=== PATIENT | female | born 1945 | race Caucasian/White ===

== ENCOUNTER 2023-04-30 09:35 | Day surgery (SDC) | payer OTHER, SELFPAY ==
[2023-04-30] VITALS (11 sets, daily range): BP systolic 97–131; BP diastolic 45–77; BMI 29.9
[2023-04-30] MEDS: NSS 222 ML IV (10:27)
[2023-04-30 12:07] LABS: ACT-LR - POC 282 Seconds (116-155)
--- NOTE | 2023-04-30 12:52 | ITS.CL.CATH ---
Reverser - Catheterization
Cardiac Catheterization
Procedure Report:
CARDIAC CATHETERIZATION REPORT
Date of Procedure: 04/30/2023
Referring: Kanu Barnett MD
Indication: Recent onset class III angina
HEMODYNAMIC DATA
AO: 144/84
LV: 144/20
LEFT VENTRICULOGRAPHY: Hyperdynamic ventricular wall motion with EF greater than 70%
CORONARY ANGIOGRAPHY
Dominance: Right
Left Main: Normal
LAD: Tandem 30% and 40-50% mid LAD stenoses with otherwise mild luminal irregularities in the LAD proper. The large bifurcating first diagonal branch has 95% stenosis in an equal sized daughter branch. The moderate to large second diagonal branch
has 80% proximal to mid stenosis.
Circumflex: 30-40% mid stenosis with otherwise trivial luminal disease
RCA: Dominant vessel with multiple luminal irregularities to 20% severity
Angioplasty: At the conclusion the diagnostic study, we proceeded with stenting of the 95% D1 and 80% D2 lesions. Heparin was used for anticoagulation. Plavix 60 mg was administered at the procedure conclusion. A 6 Togolese EBU 3.5 guide catheter
was used. A BMW wire was advanced into the D2. The 80% stenosis was directly stented with a 2.25 x 12 Xience PHANI deployed at 14 gary then postdilated with a 2.25 NC trek to 17 gary. The angiographic result was outstanding. We then turned our
attention to the D1 lesion. The same BMW wire was advanced across the lesion. Angioplasty with a 2.25 x 8 NC trek to 4 gary did not allow us to advance a 2.25 x 12 Xience PHANI to the target location. We then dilated to 6 gary. We still could not
advance the stent across the lesion. The undeployed stent was removed. We then placed a 2.25 x 18 Renzo PHANI which had a far superior crossing profile and pose no difficulty in getting the stent to the target location where was deployed at 14 gary
then postdilated with a 2.25 NC Euphora to 17 gary along its entire length. The final angiographic result was outstanding. There were no procedural complications.
Closure Device: 6 Togolese Angio-Seal RFA
Radiation (mGy): 382
DAP (cm2.Gy): 29.6
Fluoroscopy time: 9.8 minutes
CONCLUSIONS
1: Hyperdynamic left ventricular wall motion with EF greater than 70%
2: Systemic hypertension
3. Severe branch disease of the LAD as described with otherwise mild CAD
4. Successful stenting of 80% D2 lesion using 2.25 x 12 Xience PHANI
5. Successful stenting of 95% D1 lesion using 2.25 x 18 Renzo PHANI
6. Recommend dual antiplatelet therapy for 12 months
7. Continue risk factor modification efforts
Copy to: Kanu Barnett MD, Danielle Montemayor,
Luis A Arita MD, [facility], [facility]
[2023-04-30 12:54] LABS: ACT-LR - POC > 397 Seconds (116-155)
[2023-04-30] MEDS: NSS 1000 IV (13:00)
--- NOTE | 2023-04-30 16:41 | W.PN.UPDATE ---
Update Note
Progress Note Update
Pt seen post first and second diagonal PCI w/2 PHANI. Right radial cath site without ht/bleeding, non tender. Post EKG NSR, anterolateral TWI as before, no acute changes. Pt understands importance of uninterrupted DAPT w/asa, plavix. Originally had
been ordered atorvastatin 40mg and had not started yet- will sent rx to pharmacy today. Cardiac rehab consulted. Followup at [facility] arranged. Home today if cath site/tele remain stable.
== END 2023-04-30 17:30 | disposition home or self-care (01) ==
LOC: CATH 09:35
PROVIDERS: ATTENDING PHYSICIAN Internal Medicine Cardiovascular Disease; FAMILY PHYSICIAN Family Medicine
DX: I25.118 Atherosclerotic heart disease of native coronary artery with other forms of angina pectoris (principal); I10 Essential (primary) hypertension; Z79.82 Long term (current) use of aspirin; Z79.02 Long term (current) use of antithrombotics/antiplatelets
CPT/HCPCS: 85347; 93005; 93458; C1725; C1769; C1874; C1894; C9600; C9601; Q9967

== ENCOUNTER → 2023-06-22 08:51 | Outpatient (REF) | payer OTHER, SELFPAY | LOC: RCS 08:51 | PROVIDERS: ATTENDING PHYSICIAN Nurse Practitioner; FAMILY PHYSICIAN Family Medicine | DX: I25.10 Atherosclerotic heart disease of native coronary artery without angina pectoris (principal); R06.02 Shortness of breath; E78.00 Pure hypercholesterolemia, unspecified | CPT/HCPCS: 93306 ==

== ENCOUNTER 2024-04-25 14:11 | Emergency (ER) | payer OTHER, SELFPAY ==
[2024-04-25 14:19] VITALS: BP 133/86
--- NOTE | 2024-04-25 15:08 | ED.GENMED ---
History of Present Illness
General
Chief Complaint: Chest Pain
Source: patient
Exam Limitations: none
Time Seen by Provider: 04/25/24 14:45
Nursing documentation reviewed up to this point in time: agreed with
History of Present Illness
History of Present Illness:
78 yr old [id number] with past medical history of CAD, stents x 2(April 2023) female presents to the ER complaining of intermittent left-sided dull chest and arm pain for the past 2 days. Symptoms she reports are not necessarily with exertion
they simply 'come and go.' She did feel some pain in back with symptoms as well. She reports pain is intermittent and resolves on its own. She denies any diaphoresis nausea vomiting.
She complains of mild soreness in her chest presently. She denies any associated shortness of breath.
She denies any recent illness.
Patient continues on ASA.
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
Review of Systems
Review of Systems
Allergies reviewed?: Yes
All Other Systems: ROS reviewed and negative except as documented in HPI and ROS
Constitutional: Reports no symptoms
EENT: Reports no symptoms
Respiratory: Reports no symptoms; Denies trouble breathing
Cardiac: Reports chest pain; Denies diaphoresis, palpitations or syncope
ABD/GI: Reports no symptoms
: Reports no symptoms
Musculoskeletal: Reports no symptoms
Skin: Reports no symptoms
Neurological: Reports no symptoms
Psychiatric: Reports no symptoms
Phy Exam
General Physical Exam
General Presentation: no apparent distress
General age: appears stated age
General Skin: warm and dry
General Habitus: normal
General Mental: alert
General Hydration: appears well hydrated
Cardiovascular Exam
Cardiovascular Exam: regular rate/rhythm, no murmur and normal peripheral pulses
Pulmonary Exam
Pulmonary Exam: lungs clear and no respiratory distress
Scores
Heart Score for Chest Pain Patients
STEMI patient?: Not applicable
Course
Orders/Labs/Results
Orders:
Orders
04/25/24 14:12
EKG [Electrocardiogram (*1)] Urgent
Reason for Study: Chest Pain
EKG- Treatment ONCE
04/25/24 15:00
Complete Blood Count/With Diff Urgent
Comprehensive Metabolic Panel Urgent
Troponin I Urgent
04/25/24 17:39
Chest [CR Chest - 2 Views ] Urgent
Comment:
Reason For Exam: cp
04/25/24 17:40
Electrocardiogram (*1) Stat
Reason for Study: Other
Other Reason for Exam: chest pain
EKG- Treatment ONCE
04/25/24 18:00
Troponin I Urgent
Abnormal Lab Results
04/25/24
15:00
Absolute Monos (auto) 0.7 H 10^3/uL
(0.1-0.6)
Lymphocytes % 19.7 L %
(20.5-51.1)
Glucose 146 H mg/dl
(70-99)
04/25/24 15:00
04/25/24 15:00
Vital Signs
Initial and Last Documented VS:
Initial Vital Signs
Temp Pulse Resp BP Pulse Ox
98.4 F 81 16 133/86 98
04/25/24 14:19 04/25/24 14:19 04/25/24 14:19 04/25/24 14:19 04/25/24 14:19
Last Documented Vital Signs
Temp Pulse Resp BP Pulse Ox
98.4 F 78 20 133/86 98
04/25/24 14:19 04/25/24 16:15 04/25/24 15:45 04/25/24 14:19 04/25/24 14:19
Financial Administration Officer consulted with Physician
Financial Administration Officer consulted with physician?: Yes
Name of Physician Consulted: Jean
MDM/Problems Addressed
MDM/Problems Addressed:
Patient is a 78-year-old female who presented with intermittent left-sided chest pain jaw pain back pain that resolves on its own.
She is asymptomatic here in the ER first troponin negative no acute findings and EKG.
Pt is well appearing, will plan for repeat troponin and if negative will d/c home w/ fu by [facility] cardiology. will place on hotline
*Radiology
Radiology exam reviewed: radiology read reviewed
*Pulse Oximetry
Patient hypoxic: no
*EKG
Interpreted by ED Provider?: Yes
Heart Rate: 85
Rate: normal
Rhythm: sinus
Ischemia: non-specific ST changes
*Critical Care Note
Total Time (30-74mins, 75-104mins- exclusive of procedures): Not Applicable
Data Reviewed
Review of Other/Old Records Reveals: Other (Cardiac cath with stent report from April,(patient had stenting of D2 lesion and D1 lesion))
ED Attending Note
-
Portions of this chart may have been created with voice recognition software.� Occasional wrong word or��sound alike� substitutions may have occurred due to the inherent limitations of voice recognition software.
Discharge Plan
Departure
Patient Disposition: Home (Routine Discharge)
Date of Disposition: 04/25/24
Time of Disposition: 18:34
Patient with high blood pressure during this ER visit?: Yes
Condition: Fair
Covid-19: Not Applicable
Discharge Problem:
Chest pain
Instructions: Chest Pain CBC Follow Up
Prescriptions:
No Action
multivitamin Tablet
1 tab PO DAILY
diltiazem HCl 240 mg Capsule,Ext.Rel 24h Degradable
240 mg PO DAILY
aspirin 81 mg Tablet,Delayed Release (Dr/Ec)
81 mg PO DAILY
atorvastatin [atorvastatin] 40 mg tablet
40 mg PO DAILY Qty: 90 3RF
clopidogrel [clopidogrel] 75 mg tablet
75 mg PO DAILY Qty: 90 3RF
nitroglycerin [nitroglycerin] 0.4 mg tablet, sublingual
0.4 mg sublingual [id number] PRN (Reason: chest pain) Qty: 25 2RF
Referrals:
Cyrus Paez MD [Active] -
Danielle Montemayor, DO [Family Provider] -
Activity Restrictions/Additional Instructions:
As discussed you are placed on the chest pain hotline which means you should receive a phone call from the office in the next 2 days if you do not please call the office to make an appointment soon as possible for reevaluation of symptoms. Return
if any worsening of symptoms .
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
Interventions
Interventions:
*Risk Screen - Suicide Last Done: 04/25/24 14:19
*Neglect/Abuse Screening Last Done: 04/25/24 14:19
*ED COVID-19 Vaccine History Last Done: 04/25/24 14:58
ED- Cardiac Assessment Last Done: 04/25/24 14:58
Discharge Date and Time
Print Language: COLOMBIAN
[2024-04-25 15:09] LABS: % Basophils 0.8 % (0-2); % Eosinophils 2.3 % (0-6); % Immature Granulocytes 0.3 % (0-0.5); % Lymphocytes 19.7 % (20.5-51.1); % Monocytes 8.8 % (1.7-9.3); % Neutrophils 68.1 % (42.2-75.2); Absolute Basophils 0.1 10^3/uL (0-0.2); Absolute Eosinophils 0.2 10^3/uL (0-0.7); Absolute Lymphocytes 1.6 10^3/uL (1.2-3.4); Absolute Monocytes 0.7 10^3/uL (0.1-0.6); Absolute Neutrophils 5.4 10^3/uL (1.4-6.5); Hematocrit 40.5 % (37.0-47.0); Hemoglobin 13.8 g/dL (12.0-16.0); Mean Corp Hgb Conc. 34.1 g/dL (33.0-37.0); Mean Corpuscular Hgb 28.3 pg (27.0-31.0); Mean Platelet Volume 9.2 fL (7.4-10.4); Nucleated Red Blood Cells % 0 %; Platelet Count 278 10^3/uL (130-400); Red Blood Cell Count 4.88 10^6/uL (4.20-5.40); Red Cell Dist. Width 13.6 % (11.5-14.5); White Blood Cell Count 7.9 10^3/uL (4.8-10.8)
[2024-04-25 15:26] LABS: ALT (SGPT) 16 U/L (0-35); AST (SGOT) 17 U/L (14-36); Albumin 4.2 g/dl (3.5-5.0); Alkaline Phosphatase 97 U/L (38-126); Blood Urea Nitrogen 16 mg/dl (7-17); Calcium 9.5 mg/dl (8.4-10.2); Carbon Dioxide 27 mmol/L (22-30); Chloride 103 mmol/L (98-107); Glucose 146 mg/dl (70-99); Potassium 3.7 mmol/L (3.5-5.1); Sodium 139 mmol/L (135-145); Total Bilirubin 0.8 mg/dl (0.2-1.3); Total Protein 6.6 g/dl (6.3-8.2); eGFR > 60.00
[2024-04-25 15:35] LABS: Troponin I < 0.012 ng/ml
[2024-04-25 18:30] LABS: Troponin I < 0.012 ng/ml
== END 2024-04-25 18:44 | disposition home or self-care (01) ==
LOC: EMR 14:11
PROVIDERS: Nurse Practitioner; EMERGENCY PHYSICIAN Student in an Organized Health Care Education/Training Program; FAMILY PHYSICIAN Family Medicine
DX: R07.89 Other chest pain (principal); I25.10 Atherosclerotic heart disease of native coronary artery without angina pectoris
CPT/HCPCS: 99283; 71046; 80053; 84484; 85025; 93005

== ENCOUNTER 2024-05-23 06:07 | Day surgery (SDC) | payer OTHER, SELFPAY ==
[2024-05-23] VITALS (12 sets, daily range): BP systolic 112–144; BP diastolic 62–106; BMI 29.9
[2024-05-23] MEDS: NSS 223 ML IV (06:53)
[2024-05-23 08:52] LABS: ACT-LR - POC 342 Seconds (116-155)
[2024-05-23 09:17] LABS: ACT-LR - POC 289 Seconds (116-155)
[2024-05-23] MEDS: NSS 1000 IV (10:38)
--- NOTE | 2024-05-23 17:06 | ITS.CL.PN ---
Loft Rigger - Procedure Note
Procedure
Procedure Note:
CARDIAC CATHETERIZATION REPORT
Date of Procedure: 05/23/2024
Referring: Dr. Kanu Barnett MD
Indication: Class III angina
PROCEDURE(S)
1. left heart catheterization
2. coronary angiography
3. iFR LAD
4. iFR D1 upper branch
5. iFR LCx
6. FFR LAD
7. iFR D1 lower branch
8. iFR D2
ACCESS: 6F right radial artery (closure: radial band)
CATHETERS
1. 6F JR4
2. 6F JL3.5
3. 6F EBU3.5 guide catheter
MODERATE SEDATION: 45 minutes of moderate sedation was utilized. An independent medical services manager was present to assist with and help manage the patient's level of consciousness and physiologic status.
HEMODYNAMIC DATA
LV 132/8 (EDP 13) mmHg
AO 137/69 (mean 97) mmHg
CORONARY ANGIOGRAPHY
Dominance: right
LM: Large, normal
LAD: Large vessel giving rise to a large branching D1, moderate caliber D2, and small D3 before wrapping around the apex. There is a patent stent in the lower branch of the D1. There is a patent stent in the proximal D2 and mild disease proximal to
the stent edge. The upper branch of D1 has a focal 60% stenosis that has progressed from prior angiography. The mid LAD has a long segment of mild disease with a focal 60% stenosis that has progressed from prior angiography.
LCx: Large vessel giving rise to a small OM1, small OM2, and large LPL branch. There is a 40% ostial stenosis and a long segment of moderate disease spanning the OM1 and OM 2 up to 70% focally.
RCA: Large vessel giving rise to a moderate caliber RPDA and large RPL branch. There are mild luminal irregularities only.
In the setting of multiple noncritical stenoses and highly convincing symptoms, the decision was made to proceed with invasive testing of the upper branch of D1, mid LAD, and ostial and mid circumflex with iFR.
iFR of LAD
An Omni wire was flushed and zeroed outside the body and then advanced to the left main. The wire introducer was removed and the catheter flushed with saline, after which pressure of the wire and guide were normalized. The wire was advanced to the
mid LAD and iFR recorded at 0.93. iFR pullback was performed noting a focal pattern at the site of the most severe stenosis. On return to the left main, iFR appropriately normalized to ~1.0, confirming lack of wire drift.
iFR of upper branch D1
The Omni wire was redirected to the upper branch of D1 and again normalized in the left main. The wire was advanced to the distal aspect of the upper branch of D1 and iFR recorded at 0.96. On return to the left main, iFR appropriately normalized to
~1.0, confirming lack of wire drift.
iFR of LCx
The Omni wire was redirected to the left circumflex and again normalized in the left main. The wire was advanced to the distal aspect of the circumflex and iFR recorded at 1.0. On return to the left main, iFR appropriately remained 1.0, confirming
lack of wire drift.
FFR LAD
In the setting of borderline positive iFR in the LAD, the decision was made to measure FFR of the LAD. The wire was again redirected to the LAD and normalized in the left main. The wire was then advanced to the mid LAD. During ongoing adenosine
infusion FFR was recorded at 0.85.
iFR D1 lower branch
Given negative invasive assessment of the aforementioned branches and significant symptoms similar to the patient's prior angina before lower branch D1 and D2 stenting, the decision was made to perform iFR of the prior stents to ensure that there
was no angiographically unappreciated stent related stenoses. The wire was redirected to the lower branch of D1 and iFR recorded at 1.0. On return to the left main, iFR appropriately normalized to ~1.0, confirming lack of wire drift.
iFR D2
The Omni wire was again normalized in the left main. The wire was advanced to the distal aspect of D2 and iFR recorded at 1.0. On return to the left main, iFR appropriately normalized to ~1.0, confirming lack of wire drift.
RADIATION: dose 595 mGy; DAP 27.5 Gy*cm2; fluoroscopy time 21.5 min
CONCLUSIONS
1. Non-obstructive coronary artery disease in a right dominant system with patent prior stents and iFR/FFR of multiple branches demonstrating only the mid-LAD to have invasive pressure wire assessment approaching significance with iFR 0.93 and FFR
0.85.
2. Normal LV filling pressure and no aortic stenosis.
RECOMMENDATIONS
1. Intensify medical management of CAD with addition of imdur.
2. If patient continues to have typical anginal symptom despite medical optimization, consider nuclear stress testing to confirm ischemia. Consider PCI to LAD if indicated.
Copy to: Dr. Luis A Barnett MD (crepe laminator operator); Dr. Danielle Montemayor DO (PCP)
Signed: Remington Mayberry MD, PhD
== END 2024-05-23 13:00 | disposition home or self-care (01) ==
LOC: CATH 06:07
PROVIDERS: ATTENDING PHYSICIAN Student in an Organized Health Care Education/Training Program; FAMILY PHYSICIAN Family Medicine; OTHER PHYSICIAN Internal Medicine Cardiovascular Disease
DX: I25.119 Atherosclerotic heart disease of native coronary artery with unspecified angina pectoris (principal); Z79.82 Long term (current) use of aspirin; Z79.899 Other long term (current) drug therapy; Z95.5 Presence of coronary angioplasty implant and graft
CPT/HCPCS: 99152; 99153; 93799; 85347; 93458; 93571; C1769; C1894; J0153; Q9967

== ENCOUNTER → 2024-06-23 13:18 | Outpatient (REF) | payer OTHER, SELFPAY | LOC: MRI 13:18 | PROVIDERS: ATTENDING PHYSICIAN Otolaryngology; FAMILY PHYSICIAN Family Medicine | DX: H90.A21 Sensorineural hearing loss, unilateral, right ear, with restricted hearing on the contralateral side (principal) | CPT/HCPCS: 70553; A9575 ==